=== PATIENT | male | born 1945 | race Caucasian/White ===

== ENCOUNTER 2024-03-31 12:28 | Outpatient (OUT) | payer OTHER, SELFPAY ==
--- NOTE | 2024-03-31 12:46 | CA_ITS ---
Patient Name: JACQUELYN SANTANA MR#: [id number] : 1945 Exam Date: 03/31/2024 Ordering Doctor: DR. GAGE CRANE ECHOCARDIOGRAM REPORT PROCEDURE: CA ECHO DOPPLER COMPLETE INDICATIONS: Ischemic heart disease, COPD COMPARISON: None. DESCRIPTION: COMPLETE ECHOCARDIOGRAM Real-time transthoracic echocardiography with 2D, M-mode, spectral and color flow Doppler performed. QUALITY: Technical quality was good. LEFT VENTRICLE: Normal chamber size. Mild concentric hypertrophy. Global left ventricular systolic function is normal. LV EF: Estimated left ventricular ejection fraction is 55% DIASTOLIC: Diastolic function is indeterminate. ATRIAL SEPTUM: LEFT ATRIUM: Moderate dilatation. RIGHT ATRIUM: Mild dilatation. RIGHT VENTRICLE: Normal chamber size. Normal right ventricular systolic function. TRICUSPID VALVE: Normal mobility and thickness. No stenosis with trivial regurgitation. No evidence of pulmonary hypertension. RVSP 20 mmHg MITRAL VALVE: Mildly thickened with normal mobility. No evidence of mitral valve stenosis. Mild to moderate mitral regurgitation. AORTIC VALVE: Normal trileaflet appearance. Thickened aortic valve. Normal leaflet mobility. No evidence of aortic valve stenosis. No aortic regurgitation. AORTIC ROOT: Normal diameter and appearance. PULMONIC VALVE: Grossly normal. No stenosis. No regurgitation. PERICARDIUM: No evidence of pericardial effusion. IVC: Collapses with inspirations. Normal size. PLEURA: CONCLUSION: 1. Mild concentric left ventricular hypertrophy with normal systolic function. Estimated LVEF is 55%. 2. Normal right ventricular size and systolic function. 3. Mild to moderate biatrial dilatation. 4. Mild to moderate mitral regurgitation. 5. Normal right-sided pressures. Adult Echocardiography Procedure Report Left Ventricle LVEDD (3.7 - 5.6 cm): 3.95 cm LVESD (2.2 - 4.0 cm): 3.26 cm LVIVS thickness (0.6 - 1.2 cm): 1.28 cm LVPW thickness (0.5 - 1.0 cm): 1.14 cm e': 0.09 m/s E - e': 7.71 LVOT Max Gradient: 3.01 mm[Hg] LVOT Area (cm2): 0.87 m/s Peak Velocity (LVOT): 0.87 m/s Mean Velocity (LVOT): 0.57 m/s LVOT Diameter 1.98 cm Left Ventricular Ejection Fraction: 55 % Left Atrium LA Volume Index (2D A2C): 33.46 ml/m2 Left Atrium Systolic Dimension: 4.04 cm Mitral Valve MV E to A Ratio: 0.91 Mitral Valve A-Wave Peak Velocity: 0.78 m/s Mitral Valve E-Wave Peak Velocity: 0.71 m/s Right Ventricle RV Internal Diastolic Dimension: 3.12 cm Aorta AO Root Diam: 3.33 cm Ascending Ao Diam: 2.87 cm Aortic Valve AoV Area (Peak Kurt): 2.44 cm2, 2.44 cm2 AoV Area (VTI): 2.51 cm2, 2.51 cm2 Peak Velocity(Antegrade Flow): 1.09 m/s Peak Gradient(Antegrade Flow): 4.74 mm[Hg] Mean Velocity(Antegrade Flow): 0.74 m/s Mean Gradient(Antegrade Flow): 2.49 mm[Hg] Velocity Time Integral: 30.03 cm Tricuspid Valve Peak Velocity (Regurgitant Flow): 2.22 m/s, 2.18 m/s, 1.77 m/s Pulmonic Valve Mean Gradient: 1.98 mm[Hg] Mean Velocity: 0.67 m/s Peak Velocity: 0.87 m/s, 0.79 m/s Peak Gradient: 2.48 mm[Hg], 3.06 mm[Hg] Right Atrium Right Atrium Systolic Pressure: 35.96 ml, 35.96 ml Dictated by: Macario Goins M.D. on 04/01/2024 at 20:52 Approved by: Macario Goins M.D. on 04/01/2024 at 20:56
--- NOTE | 2024-03-31 13:23 | XR_ITS ---
The [address] [address] Patient Name: JACQUELYN SANTANA MRN: [id number] date: 1945 Sex: M Assigned Patient Location: CARD Current Patient Location: CARD Accession/Order Number: [id number] Exam Date: 03/31/2024 13:30 Report Date: 03/31/2024 14:15 At the request of: GAGE CRANE Procedure: XR chest 2V PROCEDURE: XR chest 2V DATE: 03/31/2024 12:30 PM [facility]BER COMPARISONS: No previous images for comparison. CLINICAL INDICATION: 79 years Male Chronic Obstructive Pulmonary Disease,Ischemic Heart Disease FINDINGS: The cardiomediastinal silhouette and pulmonary vasculature are within normal limits. Calcification is noted within the thoracic aorta. The lungs are hyperaerated. There is scattered increased interstitial markings. These findings likely represent chronic lung changes. There is no evidence of pleural effusion or pneumothorax. XR/XR chest 2V IMPRESSION: Evidence of moderate chronic lung changes. Chest is otherwise within normal limits. Electronically authenticated by: KODY BREEN Date: 03/31/2024 14:15
--- NOTE | 2024-03-31 14:00 | RT_ITS ---
The [facility] Test Date: 2024-03-31 Pat Name: JACQUELYN SANTANA Department: Room: - Gender: Male Field Contact Technician: Lupis Van RRT : 1945 Requested By: [id number] Order Number: [id number] Reading MD: Sonny Arita Interpretive Statements Spirometry was completed according to ATS criteria. Findings were considered accurate and reproducible. Both pre- and post-bronchodilator values utilized for spirometry. Spirometry (based on pre-bronchodilator values): -FEV1/FVC: Reduced @ 49% -FEV1: Severely reduced @ 35% -FVC: Reduced @ 51% -UOF83-15%: Reduced @ 17% -There is no significant bronchodilator response. Flow-volume loop: -Severe obstructive pattern Impressions: -Spirometry shows a severe obstuction without a bronchodilator response. 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 Clinical correlation required. Electronically Signed On 03-31-2024 17:44:23 EST by Sonny Arita
[2024-03-31] MEDS: ALBUTEROL SULFATE 2.5 MG/3 ML VIAL NEB IH (14:01)
== END 2024-03-31 12:29 | disposition home or self-care (01) ==
LOC: CARD 12:37
PROVIDERS: Visit Provider Chiropractor
DX: I25.9 Chronic ischemic heart disease, unspecified (principal); J44.9 Chronic obstructive pulmonary disease, unspecified
CPT/HCPCS: 71046; 93306; 94060